=== PATIENT | female | born 1990 | race Caucasian/White ===

== ENCOUNTER 2017-09-06 12:27 | Emergency (ER) | payer BC ==
[~2017-09-06] VITALS: Ht 167.6 cm; Wt 68.0 kg
[~2017-09-06 12:27] MED LIST: Micronor,Nor-Q-D,Err PO; Motrin PO
[2017-09-06 14:09] LABS: HEMATOCRIT 42.2 % (36.0-46.0); HEMOGLOBIN 14.5 G/DL (11.9-15.5); MCH 30.1 PG (29.0-34.0); MCHC 34.4 G/DL (30.0-36.0); MCV 87.7 FL (83-99); PLATELET COUNT 236 K/uL (156-360); RBC DIS.WIDTH-CV 12.1 % (11.8-14.6); RBC DIS.WIDTH-SD 39.1 % (39-53); RED BLOOD COUNT 4.81 M/uL (3.80-5.20)
[2017-09-06 14:22] LABS: CHLORIDE 106 mEq/L (99-109); POTASSIUM 3.9 mEq/L (3.7-5.4); SODIUM 140 mEq/L (136-147)
[2017-09-06 14:23] LABS: GLUCOSE 86 mg/dL (70-99)
[2017-09-06 14:27] LABS: CREATININE 0.8 mg/dL (0.6-1.3); GFR ESTIMATE (CALCULATED) > 59 mL/min/
[2017-09-06 14:28] LABS: UREA NITROGEN (BUN) 15 mg/dL (9-23)
[2017-09-06 14:36] LABS: TROP-I INTERPRETATION NEGATIVE; TROPONIN-I < 0.01 ng/mL (0.0-0.30)
[2017-09-06 15:37] LABS: TROP-I INTERPRETATION NEGATIVE; TROPONIN-I < 0.01 ng/mL (0.0-0.30)
[2017-09-06 15:45] VITALS: BP 115/81
== END 2017-09-06 15:48 | disposition home or self-care (01) ==
LOC: EME 12:27
PROVIDERS: Nurse Practitioner Family
DX: R00.2 Palpitations (principal); R07.9 Chest pain, unspecified; F17.200 Nicotine dependence, unspecified, uncomplicated; Z82.49 Family history of ischemic heart disease and other diseases of the circulatory system
CPT/HCPCS: 71046; 80048; 84484; 85027; 85379; 93005; 99281; 99284